=== PATIENT | female | born 1965 | race Caucasian/White ===

== ENCOUNTER 2020-04-23 03:03 | Inpatient (IN) | payer BC, OTHER ==
[~2020-04-23] VITALS: Ht 165.1 cm; Wt 45.0 kg
[~2020-04-23 03:03] MED LIST: LEVA15HF4 IH; NO HOME MEDS; PRED20TA PO
[2020-04-23] MEDS ORDERED: morphine 4 MG/ML inj SYRINge IV ONE ×2 (03:20→04:30)
[2020-04-23] MEDS ORDERED: ondansetron/PF 4mg/2ml inj IV ONE ×2 (03:30→06:00)
[2020-04-23 03:38] LABS: BASOPHILS % (AUTO) 0.2 % (0-1); EOSINOPHILS # (AUTO) 0.3 X10'3 (0-0.9); EOSINOPHILS % (AUTO) 3.2 % (0-6); HEMATOCRIT 43.5 % (35.0-45.0); HEMOGLOBIN 14.7 g/dl (12.0-16.0); LYMPHOCYTES # (AUTO) 3.8 X10'3 (1.1-4.8); LYMPHOCYTES % (AUTO) 40.9 % (21-51); MEAN CORPUSCULAR HEMOGLOBIN 35.2 PG (27.0-31.0); MEAN CORPUSCULAR HGB CONC 33.7 g/dL (33.0-36.5); MEAN CORPUSCULAR VOLUME 104.4 FL (78-98); MONOCYTES # (AUTO) 0.7 X10'3 (0-0.9); MONOCYTES % (AUTO) 7.3 % (2-12); NEUTROPHILS # (AUTO) 4.5 X10'3 (1.8-7.7); NEUTROPHILS % (AUTO) 48.4 % (42-75); PLATELET COUNT 238 X10'3 (140-440); RED BLOOD COUNT 4.16 X10'6 (4.20-5.60); RED CELL DISTRIBUTION WIDTH 13.8 % (11.5-14.5); WHITE BLOOD COUNT 9.3 X10'3 (4.5-11.0)
[2020-04-23 03:43] LABS: ANION GAP 13 (8-16); BLOOD UREA NITROGEN 10 MG/DL (7-18); BUN/CREATININE RATIO 13.5 (6.6-38.0); CALCIUM 8.7 MG/DL (8.5-10.1); CHLORIDE 103 MMOL/L (99-107); CREATININE 0.74 MG/DL (0.40-0.90); GLUCOSE 78 MG/DL (70-104); POTASSIUM 3.7 MMOL/L (3.5-5.1); SODIUM 141 MMOL/L (135-145); eGFR 81 ML/MIN
[2020-04-23] MEDS ORDERED: iohexol 300mg/ml 100ml inj. ONE (03:52)
[2020-04-23] MEDS ORDERED: ketorolac trometh. 30mg/ml inj. IV ONE (05:50)
[2020-04-23] MEDS ORDERED: morphine 10mg/ml inj. IV ONE (06:00)
[2020-04-23] MEDS ORDERED: magnesium 4gm in 100ml NS 100 ML IV PRN (07:25)
[2020-04-23] MEDS ORDERED: potassium Cl 20 mEq SR tablet PO PRN ×2 (07:25)
[2020-04-23] MEDS ORDERED: magnesium Cl slow-release 64mg tablet PO PRN (07:25)
[2020-04-23] MEDS ORDERED: magnesium 2GM in 50ml NS 50 ML IV PRN (07:25)
[2020-04-23] MEDS ORDERED: potassium CL 10mEq/100ml bag 100 ML IV PRN ×2 (07:25)
[2020-04-23] MEDS: K and/or MAG REPLACEMENT MC SCH ×2 (08:00→20:00)
[2020-04-23] MEDS: morphine 2 MG/ML inj. syringe IV PRN ×3 (09:05→19:35)
[2020-04-23] MEDS: docusate sod 100mg capsule PO SCH ×2 (09:10→19:32)
--- NOTE | 2020-04-23 09:30 | NUR ---
Patient tranferred from ER to room 4009B in stable condition.
[2020-04-23 09:45] VITALS: BP 170/92
--- NOTE | 2020-04-23 11:27 | NUR ---
PAGER ID: [phone] MESSAGE: [phone] [id number] Sparkle Bradley Pt vomiting, nothing for nausea ordered. Also pts daughter said patient is heavy drinker, need ETOH protocol ordered. Thanks. BRITTANY [id number]
[2020-04-23] MEDS ORDERED: dextrose 50%-water 50ml dispensing syringe IV PRN (11:30)
[2020-04-23] MEDS ORDERED: thiamine 100mg/ml 2ml inj. IV ONE (11:30)
[2020-04-23] MEDS ORDERED: ondansetron/PF 4mg/2ml inj IV PRN (11:30)
[2020-04-23] MEDS ORDERED: thiamine inj. 100 MG in normal saline 100ml IV soln 100 ML IV ONE (11:40)
[2020-04-23] MEDS: LORazepam 2 mg/ml vial IV PRN ×2 (11:40→21:38)
[2020-04-23] MEDS: HYDROcodone/acetaminophen 10/325mg tab PO PRN ×2 (16:33→21:32)
[2020-04-23 17:00] VITALS: BP 133/76
--- NOTE | 2020-04-23 18:15 | NUR ---
Patient in room ORTHO 4009. I have received report from Sharron LAZARO and had the opportunity to ask questions and assume patient care.
--- NOTE | 2020-04-23 18:25 | NUR ---
Problems reprioritized. Patient report given, questions answered & plan of care reviewed with Delisa LAZARO.
--- NOTE | 2020-04-23 20:00 | NUR ---
pt stated "she wishes she could go outside and smoke" pt smokes 1/[address] JAVED ordered nicotine patch. will continue to monitor.
[2020-04-23] MEDS: nicotine 21mg patch - 24 hr TD SCH (20:17)
[2020-04-23 21:59] VITALS: BP 162/93
[2020-04-24] MEDS: morphine 2 MG/ML inj. syringe IV PRN (00:13)
--- NOTE | 2020-04-24 00:19 | NUR ---
pt c/o "some very weird dreams." pt wanted nicotine patch to be removed since a new one will be placed in the AM anyways. patch removed. will continue to monitor
[2020-04-24] MEDS: HYDROcodone/acetaminophen 10/325mg tab PO PRN ×3 (02:41→19:44)
--- NOTE | 2020-04-24 06:09 | NUR ---
Problems reprioritized. Patient report given, questions answered & plan of care reviewed with Becky ALZARO.
[2020-04-24 06:11] LABS: BASOPHILS # (AUTO) 0.1 X10'3 (0-0.2); BASOPHILS % (AUTO) 1.5 % (0-1); EOSINOPHILS # (AUTO) 0.2 X10'3 (0-0.9); EOSINOPHILS % (AUTO) 3.3 % (0-6); HEMATOCRIT 38.9 % (35.0-45.0); HEMOGLOBIN 13.3 g/dl (12.0-16.0); LYMPHOCYTES # (AUTO) 1.8 X10'3 (1.1-4.8); LYMPHOCYTES % (AUTO) 31.5 % (21-51); MEAN CORPUSCULAR HEMOGLOBIN 35.6 PG (27.0-31.0); MEAN CORPUSCULAR HGB CONC 34.3 g/dL (33.0-36.5); MEAN CORPUSCULAR VOLUME 103.9 FL (78-98); MEAN PLATELET VOLUME 9.9 FL (7.4-10.4); MONOCYTES # (AUTO) 0.5 X10'3 (0-0.9); MONOCYTES % (AUTO) 9.1 % (2-12); NEUTROPHILS # (AUTO) 3.2 X10'3 (1.8-7.7); NEUTROPHILS % (AUTO) 54.6 % (42-75); PLATELET COUNT 187 X10'3 (140-440); RED BLOOD COUNT 3.74 X10'6 (4.20-5.60); RED CELL DISTRIBUTION WIDTH 13.5 % (11.5-14.5); WHITE BLOOD COUNT 5.8 X10'3 (4.5-11.0)
--- NOTE | 2020-04-24 06:23 | NUR ---
received report from surgical nurse
[2020-04-24 06:29] LABS: ALBUMIN 3.7 G/DL (3.4-5.0); ANION GAP 10 (8-16); BLOOD UREA NITROGEN 15 MG/DL (7-18); BUN/CREATININE RATIO 23.1 (6.6-38.0); CALCIUM 8.3 MG/DL (8.5-10.1); CHLORIDE 97 MMOL/L (99-107); CREATININE 0.65 MG/DL (0.40-0.90); GLUCOSE 87 MG/DL (70-104); MAGNESIUM 1.8 MG/DL (1.5-2.4); POTASSIUM 3.9 MMOL/L (3.5-5.1); SODIUM 135 MMOL/L (135-145); TOTAL CARBON DIOXIDE 28.2 MMOL/L (24-32); eGFR > 90 ML/MIN
[2020-04-24 07:19] VITALS: BP 155/88
[2020-04-24] MEDS: K and/or MAG REPLACEMENT MC SCH ×2 (08:00→19:31)
[2020-04-24] MEDS: nicotine 21mg patch - 24 hr TD SCH (08:08)
[2020-04-24] MEDS: docusate sod 100mg capsule PO SCH ×2 (08:08→19:31)
[2020-04-24 10:00] VITALS: BP 163/85
[2020-04-24] MEDS: LORazepam 2 mg/ml vial IV PRN ×2 (11:24→19:45)
--- NOTE | 2020-04-24 15:29 | NUR ---
Low BMI trigger: BMI 16.5. Pt admit w/ multiple rib fx s/p fall hx half pint of liquor daily and MCV 103.9 on admit. Pt seen by RD and reports decreased PO since was ill and has not improved since his passing though will mostly snack throughout the day. Pt is smaller frame certainly thin though has no visible signs of severe muscle/fat wasting and food from lunch eaten at bedside during RD visit. Pt has no edema and normal strength. Does not meet malnutrition criteria at this time. RD d/w RN regarding thiamin, folic, MVI supplementation if MD agreeable given etoh hx. Will continue to monitor. Addendum: 04/24/20 at [address] Amended: Links added.
[2020-04-24 18:00] VITALS: BP 154/97
--- NOTE | 2020-04-24 18:30 | NUR ---
Patient in room ORTHO 4009. I have received report from Becky LAZARO and had the opportunity to ask questions and assume patient care.
[2020-04-24 22:00] VITALS: BP 153/97
[2020-04-25] MEDS: LORazepam 2 mg/ml vial IV PRN (03:23)
[2020-04-25 06:00] VITALS: BP 122/93
[2020-04-25 06:05] LABS: ALBUMIN 3.7 G/DL (3.4-5.0); ANION GAP 10 (8-16); BLOOD UREA NITROGEN 12 MG/DL (7-18); BUN/CREATININE RATIO 17.1 (6.6-38.0); CALCIUM 9.2 MG/DL (8.5-10.1); CHLORIDE 97 MMOL/L (99-107); GLUCOSE 97 MG/DL (70-104); MAGNESIUM 1.6 MG/DL (1.5-2.4); POTASSIUM 3.9 MMOL/L (3.5-5.1); SODIUM 134 MMOL/L (135-145); TOTAL CARBON DIOXIDE 26.9 MMOL/L (24-32); eGFR 87 ML/MIN
[2020-04-25 06:09] LABS: BASOPHILS # (AUTO) 0.1 X10'3 (0-0.2); HEMOGLOBIN 14.2 g/dl (12.0-16.0); MONOCYTES # (AUTO) 0.6 X10'3 (0-0.9); WHITE BLOOD COUNT 6.4 X10'3 (4.5-11.0)
[2020-04-25 06:11] LABS: BASOPHILS % (AUTO) 1.1 % (0-1); EOSINOPHILS # (AUTO) 0.3 X10'3 (0-0.9); HEMATOCRIT 41.7 % (35.0-45.0); LYMPHOCYTES # (AUTO) 1.9 X10'3 (1.1-4.8); LYMPHOCYTES % (AUTO) 29.7 % (21-51); MEAN CORPUSCULAR HEMOGLOBIN 35.2 PG (27.0-31.0); MEAN CORPUSCULAR VOLUME 103.3 FL (78-98); MEAN PLATELET VOLUME 10.5 FL (7.4-10.4); MONOCYTES % (AUTO) 9.5 % (2-12); NEUTROPHILS # (AUTO) 3.5 X10'3 (1.8-7.7); NEUTROPHILS % (AUTO) 55.7 % (42-75); PLATELET COUNT 190 X10'3 (140-440); RED BLOOD COUNT 4.03 X10'6 (4.20-5.60); RED CELL DISTRIBUTION WIDTH 13.5 % (11.5-14.5)
--- NOTE | 2020-04-25 06:35 | NUR ---
Problems reprioritized. Patient report given, questions answered & plan of care reviewed with Dianna LAZARO.
--- NOTE | 2020-04-25 07:11 | NUR ---
Patient in room ORTHO 4009. I have received report from Laura LAZARO and had the opportunity to ask questions and assume patient care.
--- NOTE | 2020-04-25 07:14 | NUR ---
Patient in room ORTHO 4009. I have received report from Laura LAZARO and had the opportunity to ask questions and assume patient care.
[2020-04-25] MEDS: docusate sod 100mg capsule PO SCH (07:30)
[2020-04-25] MEDS: nicotine 21mg patch - 24 hr TD SCH (07:32)
[2020-04-25] MEDS: HYDROcodone/acetaminophen 10/325mg tab PO PRN (07:37)
[2020-04-25] MEDS: K and/or MAG REPLACEMENT MC SCH (08:00)
[2020-04-25 08:01] LABS: LARGE PLATELETS FEW
[2020-04-25 08:02] LABS: PLATELET ESTIMATE NORMAL
[2020-04-25 10:00] VITALS: BP 156/106
--- NOTE | 2020-04-25 10:03 | NUR ---
Patient left AMA, signed paper. Informed patient of risks of leaving AMA. Dr. Whiting was paged. Pt already took IV out.
[2020-04-25] MEDS ORDERED: LORazepam 1 MG tablet PO PRN (11:30)
[2020-04-25] MEDS ORDERED: LORazepam 2 mg/ml vial IV PRN (11:30)
[2020-04-27] MEDS ORDERED: LORazepam 1 MG tablet PO PRN (11:30)
[2020-04-27] MEDS ORDERED: LORazepam 2 mg/ml vial IV PRN (11:30)
== END 2020-04-25 10:00 | disposition left against medical advice (07) | DRG 185 ==
LOC: ER 03:03 → ED HOLD 07:22 → ORTHO 4S 09:40
PROVIDERS: ADMIT Internal Medicine; ATTEND Internal Medicine
PROC: BW251ZZ Computerized Tomography (CT Scan) of Chest, Abdomen and Pelvis using Low Osmolar Contrast (ICD-10-PCS; principal; 2020-04-23)
DX: S22.42XA Multiple fractures of ribs, left side, initial encounter for closed fracture (principal); F10.10 Alcohol abuse, uncomplicated; F17.210 Nicotine dependence, cigarettes, uncomplicated; W01.0XXA Fall on same level from slipping, tripping and stumbling without subsequent striking against object, initial encounter; F41.1 Generalized anxiety disorder; R91.1 Solitary pulmonary nodule; Z53.29 Procedure and treatment not carried out because of patient's decision for other reasons; Z88.8 Allergy status to other drugs, medicaments and biological substances; Y93.89 Activity, other specified; Y92.89 Other specified places as the place of occurrence of the external cause; Y99.8 Other external cause status; Z98.51 Tubal ligation status; Z71.41 Alcohol abuse counseling and surveillance of alcoholic; Z71.6 Tobacco abuse counseling
CPT/HCPCS: 36415; 71260; 74177; 80048; 82948; 83735; 85025; 87081; 93005; 99285; G0378; J1885; J2060; J2270; J2405; J3411; Q9967